=== PATIENT | female | born 1975 | race African-American/Black ===

== ENCOUNTER 2017-02-02 19:35 | Emergency (ER) | payer MEDICAID ==
[2017-02-02 19:56] VITALS: BP 120/87; PULSE 77; RESP 16; TEMP 98.4; O2SAT 99
--- NOTE | 2017-02-02 20:28 | EDPHY ---
H & P Time Seen by Provider: 02/02/17 20:13 HPI/ROS: CHIEF COMPLAINT: Odontalgia HISTORY OF PRESENT ILLNESS: 41-year-old female states that 3 days ago while eating a peanut she fractured her tooth number 31. She has an appoint with dentist in 5 days was complaining of localized pain not relieved with 800 mg ibuprofen. No facial swelling. No fetid odor or foul taste. No trismus no drooling. No facial swelling. PHYSICAL EXAM (Prior to examination, patient consented to physical exam, hands were washed and my usual and customary physical exam procedures followed) 1) GENERAL: Well-developed, well-nourished, alert and oriented. Appears to be in no acute distress. 2) HEAD: Normocephalic 3) HEENT: sclera anicteric . No trismus no drooling. Tooth Number 31 is fractured with localized pain to percussion. No evidence of local abscess. Floor of mouth soft no evidence of Bola's angina. Submental submandibular spaces are soft no induration no erythema. Symmetrical faces. 4) LUNGS: Breathing comfortably. Smoking Status: Former smoker Constitutional: Initial Vital Signs Temperature (C) 36.9 C 02/02/17 19:52 Heart Rate 77 02/02/17 19:52 Respiratory Rate 16 02/02/17 19:52 Blood Pressure 120/87 H 02/02/17 19:52 O2 Sat (%) 99 02/02/17 19:52 O2 Delivery Mode Room Air Allergies/Adverse Reactions: No Known Allergies Allergy (Verified 02/02/17 19:58) Home Medications: Medication Instructions Recorded Amoxicillin Trihydrate 500 mg PO Q8 7 Days 02/02/17 [Amoxicillin 500mg cap] oxyCODONE/APAP 5/325 [Percocet 1 tab PO Q6 #10 tab 02/02/17 5/325] MDM/Departure - MDM Procedures: Procedure: Dental nerve block Indications: Odontalgia indications risks benefits discussed with patient and she consents,, 0.5% bupivacaine instilled by myself achieving anesthesia locally. Patient tolerated procedure well. - Depart Disposition: Home, Routine, Self-Care Clinical Impression: Fractured tooth Qualifiers: Encounter type: initial encounter Fracture type: closed Qualified Code(s): S02.5XXA - Fracture of tooth (traumatic), initial encounter for closed fracture Condition: Good Instructions: Toothache (ED), Acute Dental Trauma (ED) Prescriptions: Amoxicillin Trihydrate [Amoxicillin 500mg cap] 500 mg PO Q8 7 Days oxyCODONE/APAP 5/325 [Percocet 5/325] 1 tab PO Q6 #10 tab Referrals: Keep, your appointment with dentist in 5 days [Other] - As per Instructions
== END 2017-02-02 20:30 | disposition home or self-care (01) ==
PROC: 3E0X3BZ Introduction of Anesthetic Agent into Cranial Nerves, Percutaneous Approach (ICD-10-PCS; principal; 2017-02-02)
DX: K03.81 Cracked tooth (principal); Z87.891 Personal history of nicotine dependence

== ENCOUNTER 2017-05-04 15:35 | Emergency (ER) | payer MEDICAID ==
[2017-05-04 15:47] VITALS: BP 134/77; PULSE 85; RESP 16; TEMP 98.2; O2SAT 97
[2017-05-04 15:48] LABS: COLOR YELLOW; LEUKOCYTE ESTERASE,URINE NEGATIVE (NEGATIVE); NITRITE,URINE NEGATIVE (NEGATIVE); PH,URINE 5.5 (5.0-7.5)
[2017-05-04 15:55] LABS: WBC,URINE OCCASIONAL /hpf (0-3)
[2017-05-04 15:56] LABS: BACTERIA 2+ /hpf (NONE SEEN); MUCUS 2+ /lpf (NONE-1+); RBC,URINE OCCASIONAL /hpf (0-3)
[2017-05-04] MEDS ORDERED: IBUPROFEN 600 MG TAB PO ONE (16:02)
--- NOTE | 2017-05-04 16:11 | EDPHY ---
H & P Time Seen by Provider: 05/04/17 15:48 HPI/ROS: This patient was chewing on ham [employer] and sustained a dental fracture to the right lower posterior molar few days prior to arrival instead increasing pain to the area since that time. She has a history of a filling in the same tooth and she now reports severe pain to the area. She has no associated symptoms besides the pain. She notes no exacerbating or alleviating factors except minimal relief from ibuprofen. ROS: No fevers or chills. No other constitutional symptoms HEENT: No facial swelling per patient. No change in her voice. Neuro: No symptoms Integumentary: No skin rash GI: No nausea or vomiting 5 point ROS is otherwise negative Smoking Status: Never smoked Physical Exam: Physical Exam Vital signs are normal. General: Pleasant black female No acute distress HEENT: Oropharynx: Patient has a small or Watson class 3 fracture of the right posterior lower molar with mild gingival tenderness but no fluctuance. She has tenderness to percussion of the affected tooth. There is no associated facial swelling or submental swelling. Eyes: Pupils equal and react to light. Extraocular motions are intact. Neck: Supple with no significant anterior cervical lymphadenopathy. Lungs: No respiratory distress. Cardiac: Brisk capillary refill is intact throughout. Skin: No rash or pallor. Neuro: GCS 15. Cranial nerves grossly 2-12 intact Initial differential diagnosis: Dental fracture,. Apical abscess, periodontitis Constitutional: Initial Vital Signs Temperature (C) 36.8 C 05/04/17 15:36 Heart Rate 85 05/04/17 15:36 Respiratory Rate 16 05/04/17 15:36 Blood Pressure 134/77 H 05/04/17 15:36 O2 Sat (%) 97 05/04/17 15:36 O2 Delivery Mode Room Air Allergies/Adverse Reactions: No Known Allergies Allergy (Verified 05/04/17 15:47) Home Medications: Medication Instructions Recorded Ibuprofen [Motrin (*)] 600 mg PO Q6 PRN #30 tab 05/04/17 Penicillin V Potassium [Pen Vk 500 mg PO TID #30 tab 05/04/17 500mg (*)] traMADol [Ultram 50 mg (*)] 50 - 100 mg PO Q4 PRN #18 tab 05/04/17 MDM/Departure - MDM Medications Given: Discontinued Medications Ibuprofen (Motrin) 600 mg PO EDNOW ONE Stop: 05/04/17 16:03 Last Admin: 05/04/17 16:08 Dose: 600 mg ED Course/Re-evaluation: Discussion: Dental fracture without evidence of significant abscess, Bola's angina, sepsis or other complications. The patient has an appointment with dentist within the week for further evaluation - Depart Disposition: Home, Routine, Self-Care Clinical Impression: Tooth fracture, Pain, dental Condition: Good Instructions: Toothache (ED) Additional Instructions: Diagnosis: Dental fracture 2. Dental pain Your urinalysis revealed no urinary tract infection Plan: Apply the wax to your tooth to cover the sharp part. Ibuprofen for discomfort Tylenol in addition Tramadol in addition if needed. No driving, alcohol or come tramadol Penicillin antibiotic OTC azo if needed for burning with urination. Soft diet until after we have her tooth repaired. Follow-up with [facility] on Tuesday Return for any significant worsening despite treatment plan Stand Alone Forms: Work Excuse Prescriptions: Ibuprofen [Motrin (*)] 600 mg PO Q6 PRN #30 tab PRN Reason: Pain Penicillin V Potassium [Pen Vk 500mg (*)] 500 mg PO TID #30 tab traMADol [Ultram 50 mg (*)] 50 - 100 mg PO Q4 PRN #18 tab PRN Reason: breakthrough pain Referrals: Doctor Not,On Staff, MD [Primary Care Provider] - As per Instructions
== END 2017-05-04 16:21 | disposition home or self-care (01) ==
LOC: CED 15:35
DX: S02.5XXA Fracture of tooth (traumatic), initial encounter for closed fracture (principal); X58.XXXA Exposure to other specified factors, initial encounter
CPT/HCPCS: 81003-PO; 81015-PO

== ENCOUNTER 2018-01-23 06:47 | Emergency (ER) | payer MEDICAID ==
[2018-01-23] MEDS ORDERED: PHENAZOPYRIDINE HCL 200 MG TAB PO ONE (06:58)
--- NOTE | 2018-01-23 07:01 | EDPHY ---
H & P Time Seen by Provider: 01/23/18 06:55 HPI/ROS: CHIEF COMPLAINT: Dysuria HISTORY OF PRESENT ILLNESS: The patient is a 42-year-old female who comes to the emergency department complaining of dysuria. She states her symptoms began yesterday. No fever. No back pain. No vomiting. She states that she has had many urine infections on this feels similar. She states that she did not make it to the bathroom in time yesterday evening. She has been using cranberry juice at home with no improvement REVIEW OF SYSTEMS: Constitutional: denies: chills, fever, recent illness, recent injury EENTM: denies: blurred vision, double vision, nose congestion Respiratory: denies: cough, shortness of breath Cardiac: denies: chest pain, irregular heart rate, lightheadedness, palpitations Gastrointestinal/Abdominal: denies: abdominal pain, diarrhea, nausea, vomiting, blood streaked stools Genitourinary: See HPI Musculoskeletal: denies: joint pain, muscle pain Skin: denies: lesions, rash, jaundice, bruising Neurological: denies: headache, numbness, paresthesia, tingling, dizziness, weakness Hematologic/Lymphatic: denies: blood clots, easy bleeding, easy bruising Immunologic/allergic: denies: HIV/AIDS, transplant EXAM: GENERAL: Well-appearing, well-nourished and in no acute distress. HEAD: Atraumatic, normocephalic. EYES: Pupils equal round and reactive to light, extraocular movements intact, sclera anicteric, conjunctiva are normal. ENT: TMs normal, nares patent, oropharynx clear without exudates. Moist mucous membranes. NECK: Normal range of motion, supple without lymphadenopathy or JVD. LUNGS: Breath sounds clear to auscultation bilaterally and equal. No wheezes rales or rhonchi. HEART: Regular rate and rhythm without murmurs, rubs or gallops. ABDOMEN: Soft, nontender, normoactive bowel sounds. No guarding, no rebound. No masses appreciated. BACK: No CVA tenderness, no spinal tenderness, step-offs or deformities EXTREMITIES: Normal range of motion, no pitting or edema. No clubbing or cyanosis. NEUROLOGICAL: Cranial nerves II through XII grossly intact. Normal speech, normal gait. 5/5 strength, normal movement in all extremities, normal sensation PSYCH: Normal mood, normal affect. SKIN: Warm, dry, normal turgor, no visible rashes or lesions. Source: Patient Exam Limitations: No limitations - Personal History Tetanus Vaccine Date: within 10 years - Medical/Surgical History Hx Asthma: No Hx Chronic Respiratory Disease: No Hx Diabetes: No Hx Cardiac Disease: No Hx Renal Disease: No Hx Cirrhosis: No Hx Alcoholism: No Hx HIV/AIDS: No Hx Splenectomy or Spleen Trauma: No Other PMH: uterine ablation- no menstrual cycle, pe, tonsillectomy, umbilical hernia repair w/ mesh - Family History Significant Family History: No pertinent family hx - Social History Smoking Status: Never smoked Constitutional: Initial Vital Signs Temperature (C) 36.5 C 01/23/18 07:05 Heart Rate 80 01/23/18 07:05 Respiratory Rate 16 01/23/18 07:05 Blood Pressure 158/96 H 01/23/18 07:05 O2 Sat (%) 98 01/23/18 07:05 O2 Delivery Mode Room Air Allergies/Adverse Reactions: No Known Allergies Allergy (Verified 01/23/18 07:05) Home Medications: Medication Instructions Recorded Cephalexin [Keflex] 500 mg PO TID #21 cap 01/23/18 Phenazopyridine HCl [Pyridium] 200 mg PO TID #6 tab 01/23/18 Medical Decision Making ED Course/Re-evaluation: The patient has multiple red cells in her urine but no white cells. She however describes suprapubic pain and dysuria especially at the end of urination. She denies flank pain. I offered blood work and CT scan to evaluate further for kidney stone although she does not have unilateral or flank pain. She declines and states that this is very characteristic of her previous urine infections as well. I will start her on Keflex. She has no history of renal disease. Also give her shot of Toradol. She is happy with this plan. We discussed indications for returning. Differential Diagnosis: Partial list of the Differential diagnosis considered include but were not limited to; urinary tract infection, pyelonephritis, kidney stone and although unlikely based on the history and physical exam, I also considered appendicitis , diverticulitis. I discussed these differential diagnoses and the plan with the patient as well as the usual and expected course. The patient understands that the diagnosis is provisional and that in medicine we are not always correct and that further workup is often warranted. Usual and customary warnings were given. All of the patient's questions were answered. The patient was instructed to return to the emergency department should the symptoms at all worsen or return, otherwise to followup with the physician as we discussed. - Data Points Laboratory Results: 01/23/18 01/23/18 07:00 07:00 Urine Color YELLOW Urine Appearance HAZY Urine pH 5.5 (5.0-7.5) Ur Specific Archer >= 1.030 (1.002-1.030) Urine Protein 1+ H (NEGATIVE) Urine Ketones NEGATIVE (NEGATIVE) Urine Blood 2+ H (NEGATIVE) Urine Nitrate NEGATIVE (NEGATIVE) Urine Bilirubin NEGATIVE (NEGATIVE) Urine Urobilinogen 0.2 EU EU (0.2-1.0) Ur Leukocyte Esterase NEGATIVE (NEGATIVE) Urine RBC 5-10 /hpf H /hpf (0-3) Urine WBC 0-1 /hpf /hpf (0-3) Ur Epithelial Cells 2+ /lpf H /lpf (NONE-1+) Urine Bacteria 1+ /hpf H /hpf (NONE SEEN) Urine Mucus 2+ /lpf H /lpf (NONE-1+) Urine Glucose NEGATIVE (NEGATIVE) Urine Test NEGATIVE Medications Given: Discontinued Medications Cephalexin HCl (Keflex) 500 mg PO EDNOW ONE PRN Reason: Protocol Stop: 01/23/18 07:22 Last Admin: 01/23/18 07:33 Dose: 500 mg Ketorolac Tromethamine (Toradol) 30 mg IM EDNOW ONE Stop: 01/23/18 07:22 Last Admin: 01/23/18 07:33 Dose: 30 mg Phenazopyridine HCl (Pyridium) 200 mg PO EDNOW ONE Stop: 01/23/18 06:59 Last Admin: 01/23/18 07:03 Dose: 200 mg Departure - Departure Disposition: Home, Routine, Self-Care Clinical Impression: Urinary tract infection Qualifiers: Urinary tract infection type: acute cystitis Hematuria presence: without hematuria Qualified Code(s): N30.00 - Acute cystitis without hematuria Condition: Fair Instructions: Urinary Tract Infection in Women (ED) Referrals: Bhumi Sheth MD [Medical Doctor] - 2-3 days, call for appt. Prescriptions: Cephalexin [Keflex] 500 mg PO TID #21 cap Phenazopyridine HCl [Pyridium] 200 mg PO TID #6 tab
[2018-01-23] MEDS ORDERED: PHENAZOPYRIDINE HCL 200 MG TAB ONE (07:05)
[2018-01-23] MEDS ORDERED: KETOROLAC 30 MG/1 ML SDV IM ONE (07:21)
[2018-01-23] MEDS ORDERED: CEPHALEXIN 500 MG CAP PO ONE (07:21)
[2018-01-23 07:35] VITALS: BP 158/96
== END 2018-01-23 07:46 | disposition home or self-care (01) ==
LOC: CED 06:47
DX: N30.00 Acute cystitis without hematuria (principal); B96.89 Other specified bacterial agents as the cause of diseases classified elsewhere
CPT/HCPCS: 81003-PO; 81015-PO; 81025-PO; J1885